=== PATIENT | male | born 1950 | race Caucasian/White ===

== ENCOUNTER 2019-05-10 10:35 | Day surgery (SDC) | payer BC ==
[~2019-05-10] VITALS: Ht 172.7 cm; Wt 66.3 kg
[2019-05-10 11:11] VITALS: BP 112/73; PULSE 54; TEMP 97.3
--- NOTE | 2019-05-10 11:18 | NUR ---
TO RM AT 1041- CALL LIGHT IN REACH AT BEDSIDE.
[2019-05-10] MEDS ORDERED: ZOVIRAX400 MG PO (11:26)
[2019-05-10] MEDS ORDERED: PAMIDRONATE IJ (11:26)
[2019-05-10] MEDS ORDERED: CALCIUM/MAGNESI1 TAB PO (11:28)
[2019-05-10] MEDS ORDERED: TIROSINT50 MC1 PO (11:29)
[2019-05-10] MEDS ORDERED: FLOMAX 0.40.4 MG/CAP PO (11:29)
[2019-05-10] MEDS ORDERED: VITAMIN B COMPL1 SGL PO (11:30)
[2019-05-10] MEDS ORDERED: VITAMIN C500 MG PO (11:30)
[2019-05-10] MEDS ORDERED: VITAMIN D31000 I1 PO (11:32)
[2019-05-10] MEDS ORDERED: MULTI VITAMINS1 TAB PO (11:33)
[2019-05-10] MEDS ORDERED: [UNRECOGNIZED DRUG - OTHER] PO (11:33)
[2019-05-10] MEDS ORDERED: VITAMIN D250 MCG PO (11:35)
[2019-05-10] MEDS ORDERED: NORCO 325 MG-51 TAB PO ×3 (15:00→15:11)
[2019-05-10 15:50] VITALS: BP 136/77; PULSE 53; TEMP 97.4
--- NOTE | 2019-05-10 15:50 | NUR ---
The patient arrived back to [facility] from the recovery room at this time. The patient appears alert and oriented and reports minimal pain and no nausea at this time. The patient has some ice chips and appears to be tolerating them well. The patient denies wanting anything further to eat or drink at this time. Post operative vital signs were started at this time. The patient has three lap sites that appear clean, dry and intact. The patient's is at his bedside. Call light is within reach. Will continue to monitor the patient.
[2019-05-10 16:05] VITALS: BP 117/75; PULSE 59
--- NOTE | 2019-05-10 16:05 | NUR ---
The patient agrees to try some water at this time. Vital signs appear stable. Call light remains within reach. continues to remain at his bedside. The patient reports pain at a "4" and describes the patient has feeling "tight and full" in his abdomen. Will continue to monitor the patient.
[2019-05-10 16:20] VITALS: BP 123/61; PULSE 58
--- NOTE | 2019-05-10 16:20 | NUR ---
The patient appears to be tolerating the water well and denies wanting anything further to eat or drink at this time. Call light is within reach. Will continue to monitor the patient.
[2019-05-10 16:35] VITALS: BP 121/69; PULSE 61
--- NOTE | 2019-05-10 16:35 | NUR ---
The patient agreed to try some strawberry jello at this time. Vital signs remain stable. Call light is within reach. is at bedside. The patient denies any further needs and was assisted to sit up in bed to eat his jello. Will continue to monitor the patient.
[2019-05-10 17:05] VITALS: BP 124/74; PULSE 57
--- NOTE | 2019-05-10 17:05 | NUR ---
The patient was assisted to the bathroom with help on one nurse and appeared to tolerate the activity well. Will continue to monitor the patient.
--- NOTE | 2019-05-10 17:15 | NUR ---
The patient voided without difficulty and is going to get dressed with the assistance of his . The nurse instructed the patient to press his call light when he is finished getting dressed and ready to review his discharge paperwork.
--- NOTE | 2019-05-10 17:24 | NUR ---
While getting dressed the patient had an episode of nausea with a small amount of emesis. The patient states he "feels better now" and was given a PRN dose of Zofran 4 mg IV. The patient's left lateral lap site appears to have bloody drainage that has soaked through the bandaid and onto his shirt. The nurse removed the patient and assessed the site without any hematoma or excessive drainage noted. A gauze pressure dressing was placed to the lap site.
--- NOTE | 2019-05-10 17:30 | NUR ---
Discharge instructions were reviewed with the patient and his at this time. They both verbalized understanding and have no questions for the nurse at this time. The patient was assisted to finish getting dressed by his and KYLAH Jonas. The patient's IV to his left forearm was removed and a pressure dressing was applied to the site.
--- NOTE | 2019-05-10 17:35 | NUR ---
The patient was escorted out via wheelchair to a private vehicle by KYLAH Bellamy. The patient's belongings and discharge paperwork were sent with him. The patient's is present to drive him home.
== END 2019-05-10 17:40 | disposition home or self-care (01) ==
LOC: SDCO 10:35
DX: K40.90 Unilateral inguinal hernia, without obstruction or gangrene, not specified as recurrent (principal); Z88.0 Allergy status to penicillin; Z88.1 Allergy status to other antibiotic agents; E03.9 Hypothyroidism, unspecified; Z92.21 Personal history of antineoplastic chemotherapy; Z85.79 Personal history of other malignant neoplasms of lymphoid, hematopoietic and related tissues; K21.9 Gastro-esophageal reflux disease without esophagitis; Z82.49 Family history of ischemic heart disease and other diseases of the circulatory system
CPT/HCPCS: C1781; J1100; J1885; J2405; J2704; J2765; J3010; J7120